=== PATIENT | female | born 1955 | race Caucasian/White ===

== ENCOUNTER → 2018-04-11 | Outpatient (CLI) | payer BC ==
[~2018-04-11] MED LIST: ALLEGRA 60MG TA60 MG PO; AMOXICILLIN 8751 TAB PO; ARTHROTEC; ASPIRIN 32325 MG/TAB PO; AVELOX 400MG T400 MG PO; CIPRO 500MG TA500 MG PO; CITRACAL PLUS1 TAB PO; CRESTOR20 MG PO; CUTIVATE 60 ML60 ML TP; FIBER TABLETS1 TAB PO; FLAGYL500 MG PO; FLONASE NASAL S16 GM NS; FLOVENT 110MCG7.9 GM IH; MILK OF MA400 MG/52 PO; NIACIN1000 MG PO; NORCO 325 MG-51 TAB PO; NORCO 325 MG-7.1 TAB PO; ROXICODONE 55 MG/TAB PO; SENOKOT8.6 MG PO; SEPTRA 400 MG-1 TAB; SEPTRA DS 8001 TAB PO; SYNTHROID 0.10.15 MG PO; SYNTHROID0.125 MG/T PO; SYNTHROID0.137 MG PO; TYLENOL 325MG325 MG PO; TYLENOL 500MG500 MG PO; VOLTAREN 75 DR75 MG PO; XARELTO10 MG PO; ZETIA 10MG TAB10 MG PO; ZETIA10 MG PO
== END ==
LOC: MC.RAD 07:20
DX: Z12.31 Encounter for screening mammogram for malignant neoplasm of breast (principal)

== ENCOUNTER → 2020-04-21 | Outpatient (CLI) | payer BC | LOC: MC.RAD 09:10 | DX: Z12.31 Encounter for screening mammogram for malignant neoplasm of breast (principal) ==

== ENCOUNTER 2020-11-17 08:00 | Day surgery (SDC) | payer BC ==
[2006-01-09 14:53] VITALS: BP 99/58
[~2020-11-17] VITALS: Ht 180.3 cm; Wt 90.0 kg
[~2020-11-17 08:00] MED LIST changes: -FIBER TABLETS1 TAB PO; +FIBERCON PO
[2020-11-17] MEDS ORDERED: VITAMIND3 5000 PO (08:49)
[2020-11-17] MEDS ORDERED: VOLTAREN 75 DR75 MG PO (09:07)
[2020-11-17 09:10] VITALS: BP 139/85; PULSE 75; TEMP 97.8
[2020-11-17 10:20] VITALS: BP 110/53; PULSE 71; TEMP 97.1
[2020-11-17 10:35] VITALS: BP 110/55; PULSE 69
--- NOTE | 2020-11-17 10:35 | NUR ---
Patient is sitting up in bed and tolerating drink and food well. Vital signs stable. Patient denies discomfort or need to void. Spouse is at bedside, call light in reach.
[2020-11-17] MEDS ORDERED: NORCO 325 MG-51 TAB PO (10:42)
[2020-11-17 10:50] VITALS: BP 123/70; PULSE 82
--- NOTE | 2020-11-17 10:50 | NUR ---
Vital signs remain stable. Patient denies any discomfort or any need to void. Reviewed discharge instruction with patient and spouse, both verbalize understanding. Discontinued IV with no complications. Instructed patient to dress and then call when ready.
--- NOTE | 2020-11-17 11:08 | NUR ---
Transfered patient via wheelchair to personal vehicle with spouse. Sent home all patients belonging and discharge instructions.
--- NOTE | 2020-11-17 11:30 | NUR ---
Patient returned to [facility] via cart by [employer]. Post-op vital signs initiated . Patient is alert and oriented and denies any discomfort. Patient request soda and peanut butter crackers. Spouse is at bedside. Call light within reach.
== END 2020-11-17 11:08 | disposition home or self-care (01) ==
LOC: SDCO 08:00
DX: M77.51 Other enthesopathy of right foot and ankle (principal); M79.671 Pain in right foot; E03.9 Hypothyroidism, unspecified; E78.5 Hyperlipidemia, unspecified; Z86.718 Personal history of other venous thrombosis and embolism; Z79.890 Hormone replacement therapy; Z79.899 Other long term (current) drug therapy
CPT/HCPCS: J0690; J2405; J2704; J3010

== ENCOUNTER → 2021-08-23 | Outpatient (CLI) | payer BC ==
[~2021-08-23] MED LIST changes: +VITAMIND3 5000 PO
== END ==
LOC: MC.RAD 16:45
DX: Z12.31 Encounter for screening mammogram for malignant neoplasm of breast (principal); N64.89 Other specified disorders of breast

== ENCOUNTER → 2021-08-25 | Outpatient (CLI) | payer BC | LOC: MC.RAD 10:45 | DX: N60.41 Mammary duct ectasia of right breast (principal); N64.89 Other specified disorders of breast ==

== ENCOUNTER → 2022-11-30 | Outpatient (CLI) | payer BC ==
[~2022-11-30] MED LIST changes: +LR 1,000 ML IV SCH
== END ==
LOC: MC.RAD 07:54
DX: Z12.31 Encounter for screening mammogram for malignant neoplasm of breast (principal)